=== PATIENT | male | born 1970 | race Caucasian/White ===

== ENCOUNTER 2019-05-06 09:08 | Emergency (ER) | payer SELFPAY ==
--- NOTE | 2019-05-06 09:14 | EDM.PDOC ---
ED HPI GENERAL MEDICAL PROBLEM - General Chief Complaint: Laceration Stated Complaint: laceration Time Seen by Provider: 05/06/19 09:14 Source of Information: Reports: Patient History Limitations: Reports: No Limitations - History of Present Illness INITIAL COMMENTS - FREE TEXT/NARRATIVE: Rojas is a 48 year old male who presents ambulatory to the ED with c/o injury to his left 5th digit. He reports about 16 hours prior to presentation he got his finger smashed between two pieces of metal. He reports he wrapped it with electrical tape to stop the bleeding. He reports he was drinking at time of injury so did not immediately present for care. He reports this morning he is having more pain to his finger. Has a very tight dressing of electrical tape on finger. He reports he is able to move his finger without difficulty. Denies any other injuries or complaints. 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 ED EXAM, SKIN/RASH Exam: See Below Exam Limited By: No Limitations General Appearance: Alert, WD/WN, No Apparent Distress Cardiovascular: Normal Peripheral Pulses Peripheral Pulses: 2+: Radial (L) Extremities: Normal Range of Motion, Normal Capillary Refill, Other (4 cm laceration with irregular edges to left 5th digit, ROM intact to DIP, bleeding controlled) ED SKIN PROCEDURES - Laceration/Wound Repair Left Distal Digit - 5th (Baby) Appearance: Subcutaneous, Irregular, Mildly Contaminated Distal NVT: Neuro & Vascular Intact, No Tendon Injury Anesthetic Type: Digital Local Anesthesia - Lidocaine (Xylocaine): 1% Plain Local Anesthetic Volume: 5cc Skin Prep: Chlorhexidine (Hibiciens), Providone-Iodine (Betadine), Saline Saline Irrigation (cc's): 30 Exploration/Debridement/Repair: Wound Explored, Minimal Debridement, Wound Margins Revised Closed with: Sutures Lac/Wound length In cm: 4 Suture Size: 4-0 # of Sutures: 6 Suture Type: Nylon, Interrupted, Simple Sterile Dressing Applied: Nurse Tetanus Status Addressed: Yes Complications: No Progress/Comments: Wound was closed ~17 hours after time of injury. Discussed significantly increase risk of infection and delayed wound closure/healing due to delay in seeking care. Course - Vital Signs Last Recorded V/S: Last Vital Signs Temp 97.4 F 05/06/19 09:09 Pulse 79 05/06/19 09:09 Resp 16 05/06/19 09:09 BP 132/82 05/06/19 09:09 Pulse Ox 99 05/06/19 09:09 - Orders/Labs/Meds Meds: Medications Discontinued Medications Generic Name Dose Route Start Last Admin Trade Name Freq PRN Reason Stop Dose Admin Lidocaine HCl 20 ml 05/06/19 09:36 05/06/19 10:20 Xylocaine 1% INJECT 05/06/19 09:37 20 ml ONETIME ONE Administration Neomycin/Polymyxin/Bacitracin 1 each 05/06/19 10:34 05/06/19 10:48 Triple Antibiotic Oint TOP 05/06/19 10:35 1 each ONETIME ONE Administration - Re-Assessments/Exams Free Text/Narrative Re-Assessment/Exam: Discussed with patient that due to the fact he did not present for closure until 16 hours following injury, risk of nonadherence of tissue hindering wound closure is likely as well as significantly increased risk of infection. Patient verbalized understanding. Free Text/Narrative Re-Assessment/Exam: PLEASE SEE NURSES NOTE FOR PMH, PSH, SH, & FH. Departure - Departure Time of Disposition: 10:48 Disposition: Home, Self-Care 01 Condition: Good Clinical Impression: Open fracture of distal phalanx of left hand - Discharge Information *PRESCRIPTION DRUG MONITORING PROGRAM REVIEWED*: No *COPY OF PRESCRIPTION DRUG MONITORING REPORT IN PATIENT [place]: No Prescriptions: Sulfamethoxazole/Trimethoprim [Bactrim Ds Tablet] 1 each PO BID 10 Days #20 tablet Instructions: Finger Fracture, Adult, [id number], Laceration Care, Adult, [id number] Referrals: PCP,None [Primary Care Provider] - Forms: ED Department Discharge Additional Instructions: - Bactrim DS twice daily x 10 days. Script can be picked up at [facility] - [place] (hydrocodone-acetaminophen) 1 tablet every 4 hours as needed for severe pain - For less severe pain alternate Tylenol and ibuprofen or Aleve every 4-6 hours as needed for pain - Keep area clean and dry - Keep covered when working in dirty work environment - Apply Neosporin and change dressing daily - Follow up for suture removal 10 days - Follow up sooner if any concerns - Monitor for infection: redness, drainage, increased pain etc.
[2019-05-06] MEDS: Lidocaine 1% 20 ML MDV INJECT ONE (10:20)
[2019-05-06] MEDS: Bacitracin/Neomycin/Polymyxin B Oint 0.9 GM U/D Packet TOP ONE (10:48)
== END 2019-05-06 11:00 | disposition home or self-care (01) ==
LOC: CC.ED 09:08
DX: S62.637B Displaced fracture of distal phalanx of left little finger, initial encounter for open fracture (principal); Z79.899 Other long term (current) drug therapy; W23.1XXA Caught, crushed, jammed, or pinched between stationary objects, initial encounter
CPT/HCPCS: 12002; 12042; 73140-F4; 99283-25; J2001